=== PATIENT | male | born 1960 | race Caucasian/White ===

== ENCOUNTER 2023-07-28 00:19 | Day surgery (SDC) | payer MEDICARE, SELFPAY ==
[2023-07-04 14:42] VITALS: BMI 38.9
--- NOTE | 2023-07-13 14:05 | PC.NURSE ---
Patient denies any changes to medication list or health history since previous phone call. Patient made aware of new arrival date and time. Denies any questions at this time.
--- NOTE | 2023-07-26 10:41 | SUR.PREOP ---
Patient called regarding upcoming procedure. Reviewed preop instructions, appointment times, and procedure prep.
[2023-07-28 13:00] VITALS: BP 154/104; PULSE 92; RESP 20; TEMP 36.1; O2SAT 92
--- NOTE | 2023-07-28 13:13 | PM.HPGS ---
History of Present Illness History of Present Illness Consent: Risks, benefits, and alternatives have been discussed and questions answered. Patient agrees to proceed with procedure. Chief complaint: neoplasm screening,GERD, Dysphonia Narrative: Forrest Zaman is a 63 year old male with gerd on nexium, had colon polyps ~ 4 years ago Review of Systems Constitutional: Constitutional: Denies headache(s) and Denies weakness Eyes: Eyes: Denies blurry vision ENT: Reports Normal hearing present, Denies headache(s) and Denies neck pain Cardiovascular: Cardiovascular: Denies chest pain and Denies dyspnea Respiratory: Respiratory: Denies dyspnea Gastrointestinal: Gastrointestinal: Reports no additional gastrointestinal complaints Genitourinary: Genitourinary: Denies dysuria Musculoskeletal: Musculoskeletal: Denies neck pain Integumentary/Breasts: Skin/Breast: Denies dry skin Neurologic: Reports Normal hearing present, Denies headache(s) and Denies weakness Psychiatric: Psychiatric: Denies anxiety Endocrine: Endocrine: Denies change in body appearance Hematologic/Lymphatic: Hematologic/Lymphatic: Denies easy bleeding Allergic/Immunologic: Allergic/Immunologic: Denies urticaria PMF Past Medical History Medical History (Updated 07/28/23 @ 13:14 by Hans Lomax MD) Colon polyp GERD (gastroesophageal reflux disease) Social History Social History Smoking packs per day: 1 Smoking cigarettes per day: 20.0 Years smoked: 55 Smoking pack-years: 55.00 Smoking status: Current every day smoker Tobacco type: cigarettes Alcohol intake: current Alcohol use details: drinks 1/5 of Rum a week Substance use: current Substance use type: marijuana Living arrangements: with family Spiritual care concerns: No Meds Home Medications and Allergies Home Medications Medication Instructions Recorded Confirmed Type albuterol sulfate 90 mcg/actuation 1 puff inhalation PRN PRN sob 07/04/23 07/04/23 History aerosol inhaler amlodipine 5 mg tablet 5 mg PO DAILY 07/04/23 07/04/23 History atorvastatin 10 mg tablet 10 mg PO DAILY 07/04/23 07/04/23 History esomeprazole magnesium 40 mg 40 mg PO DAILY 07/04/23 07/04/23 History capsule,delayed release fluticasone fur. 200 mcg-umeclid 1 ea inhalation DAILY 07/04/23 07/04/23 History 62.5 mcg-vilant 25 mcg inhalat.powder (Trelegy Ellipta) gabapentin 300 mg capsule 300 mg PO TID 07/04/23 07/04/23 History meloxicam 15 mg tablet 15 mg PO DAILY 07/04/23 07/04/23 History tirzepatide 5 mg/0.5 mL 5 mg subcut WEEKLY 07/04/23 07/04/23 History subcutaneous pen injector (Kailash) Allergies Allergy/AdvReac Type Severity Reaction Status Date / Time No Known Allergies Allergy Verified 07/28/23 12:57 Vital Signs Vital Signs - 24 hr 07/28/23 13:00 Temperature 97 F L Pulse Rate 92 Respiratory Rate 20 Blood Pressure 154/104 H Pulse Oximetry 92 Oxygen Delivery Room Air Exam Const: General: comfortable and no acute distress HENMT: Face/Nose/Sinus: Normal nares present Eyes: General: appearance normal, both eyes and all related structures Neck: Neck: no JVD Resp: Auscultation: clear to auscultation bilaterally Cardio: Rate: regular rate Rhythm: regular rhythm GI: Inspection: non-distended GI Palp: Yes Soft to palpation Skin: General skin exam: normal color Neuro: General: gait normal Speech: normal speech Extrem: General: normal to inspection Psych: Mental Status: mental status grossly normal Assessment and Plan Assessment and plan (1) GERD (gastroesophageal reflux disease): Code(s): K21.9 - Gastro-esophageal reflux disease without esophagitis Status: Acute Assessment and Plan: egd with bx on ppi (2) Colon polyp: Code(s): K63.5 - Polyp of colon Status: Acute Assessment and Plan: colonoscopy
[2023-07-28] MEDS: LACTATED RINGERS 1,000 ML 150 ML IV CONT (13:14)
[2023-07-28 13:18] LABS: Glucose Point of Care 113 mg/dl (65-105)
--- NOTE | 2023-07-28 13:32 | WPDANESEPPF ---
Anes - Initial Pre Proc Eval Procedure: Operation Date: 07/28/23 14:00 Proposed Procedures p Esophagogastroduodenoscopy & Colonoscopy - Hans Lomax MD Date/Time: 07/28/23 13:32 Surgeon: Hans Lomax MD Pre Op Diagnosis: neoplasm screening,GERD, Dysphonia Patient Data Age: 63 Gender: M Height: 1.83 m Weight: 120.8 kg Last Vital Signs Temp 97 F L 07/28/23 13:00 Pulse 92 07/28/23 13:00 Resp 20 07/28/23 13:00 BP 154/104 H 07/28/23 13:00 Pulse Ox 92 07/28/23 13:00 O2 Del Method Room Air 07/28/23 13:00 Allergies Allergy/AdvReac Type Severity Reaction Status Date / Time No Known Allergies Allergy Verified 07/28/23 12:57 Home Medications Medication Instructions Recorded Confirmed Type albuterol sulfate 90 mcg/actuation 1 puff inhalation PRN PRN sob 07/04/23 07/04/23 History aerosol inhaler amlodipine 5 mg tablet 5 mg PO DAILY 07/04/23 07/04/23 History atorvastatin 10 mg tablet 10 mg PO DAILY 07/04/23 07/04/23 History fluticasone fur. 200 mcg-umeclid 1 ea inhalation DAILY 07/04/23 07/04/23 History 62.5 mcg-vilant 25 mcg inhalat.powder (Trelegy Ellipta) gabapentin 300 mg capsule 300 mg PO TID 07/04/23 07/04/23 History meloxicam 15 mg tablet 15 mg PO DAILY 07/04/23 07/04/23 History tirzepatide 5 mg/0.5 mL 5 mg subcut WEEKLY 07/04/23 07/04/23 History subcutaneous pen injector (Davidunbelaro) esomeprazole magnesium 40 mg 40 mg PO BID #60 caps 07/28/23 Rx capsule,delayed release Laboratory Tests 07/28/23 13:16 POC Capillary Glucose 113 H mg/dl (65-105) Patient hx anesthesia problems: none Family hx anesthesia problems: none Results Review: All pre-operative results and documents have been reviewed as part of the pre-operative evaluation. [facility] Past Medical History Medical History (Updated 07/28/23 @ 13:32 by Hans Lomax MD) Colon polyp Diabetes GERD (gastroesophageal reflux disease) Social History Social History Smoking packs per day: 1 Smoking cigarettes per day: 20.0 Years smoked: 55 Smoking pack-years: 55.00 Smoking status: Current every day smoker Tobacco type: cigarettes Alcohol intake: current Alcohol use details: drinks 1/5 of Rum a week Substance use: current Substance use type: marijuana Living arrangements: with family Spiritual care concerns: No Anes - Eval Final PreProcedure Day of Procedure 07/28/23 13:32 Patient weight: obese Heart: regular rate and rhythm Lungs: clear to auscultation Airway: Mallampati scale class II Neurological: alert and oriented Last oral intake: >/= 8 hours ASA classification: III Emergent: no Anesthetic plan: proceed Anesthesia type and monitoring: general GIVS and standard monitoring Results Review: All pre-operative results and documents have been reviewed as part of the pre-operative evaluation. Informed Consent: The patient's anesthetic plan and its attendant risks and benefits were discussed with the patient/family/POA. Questions were solicited and answers provided to the satisfaction of the patient/family/POA.
--- NOTE | 2023-07-28 13:33 | SUR.OPER ---
egd ended at 1328 and colon begun at 1333.
[2023-07-28 13:48] VITALS: BP 106/74; PULSE 79; RESP 20; O2SAT 97
[2023-07-28 13:58] VITALS: BP 115/77; PULSE 76; RESP 20; O2SAT 95
[2023-07-28 14:08] VITALS: BP 114/80; PULSE 72; RESP 20; O2SAT 96
== END 2023-07-28 14:14 | disposition home or self-care (01) ==
PROVIDERS: PCP Internal Medicine; Visit Provider Internal Medicine Gastroenterology
PROC: 0DJ08ZZ Inspection of Upper Intestinal Tract, Via Natural or Artificial Opening Endoscopic (ICD-10-PCS; CPT 43235; principal; 2023-07-28 14:00)
DX: Z12.11 Encounter for screening for malignant neoplasm of colon (principal); K21.00 Gastro-esophageal reflux disease with esophagitis, without bleeding; K29.50 Unspecified chronic gastritis without bleeding; K44.9 Diaphragmatic hernia without obstruction or gangrene; D12.0 Benign neoplasm of cecum; D12.2 Benign neoplasm of ascending colon; D12.5 Benign neoplasm of sigmoid colon; K57.30 Diverticulosis of large intestine without perforation or abscess without bleeding; Z86.010 Personal history of colon polyps; F17.210 Nicotine dependence, cigarettes, uncomplicated; Z79.51 Long term (current) use of inhaled steroids; Z79.85 Long-term (current) use of injectable non-insulin antidiabetic drugs; E11.9 Type 2 diabetes mellitus without complications; E66.9 Obesity, unspecified; Z68.36 Body mass index [BMI] 36.0-36.9, adult
CPT/HCPCS: 43239; 45385; 82948; 88305; J2704; J7120

== ENCOUNTER 2023-08-18 07:23 | Outpatient (CLI) | payer MEDICARE, SELFPAY ==
--- NOTE | ~2023-08-18 | NM_ITS ---
EXAM: NM gastric emptying study DATE: 08/18/2023 12:15 TRAINING AND DEVELOPMENT SPECIALIST INDICATION: Gastroesophageal reflux TECHNIQUE: A gastric emptying study was performed using the methodology of Cora JOHNS, et al. J Nucl Med 2007; 48:568-572. The patient was given a meal consisting of 2 scrambled eggs labeled with 1 mCi Tc-99m sulfur colloid, 2 slices of toast, two packages of jam, and approximately 120 mL of water. Si multaneous anterior and posterior 1-min images of the abdomen were obtained with the patient supine a t multiple time points over a total period of 4 hours. The geometric mean of anterior and posterior v iews was determined, and the percentage retention was calculated for each time point. COMPARISON: None. FINDINGS: Gastric retention of the radiotracer-labeled meal was 91%, 91%, and 91% at the 1-hour, 2-h our, and 4-hour time points, respectively. With this technique, apparent rapid gastric emptying is yeboah ggested by <30% gastric retention at 1 hour. Delayed gastric emptying is defined by gastric retention of >90% at 1 hour, >60% retention at 2 hours, or >10% retention at 4 hours. IMPRESSION: 1. Markedly delayed gastric emptying. Reviewed, dictated and finalized at location B. [facility] AND DEVELOPMENT SPECIALIST
== END 2023-08-18 07:24 | disposition home or self-care (01) ==
LOC: ANHIMG 07:25
PROVIDERS: PCP Internal Medicine; Visit Provider Internal Medicine Gastroenterology
DX: K21.9 Gastro-esophageal reflux disease without esophagitis (principal); E11.9 Type 2 diabetes mellitus without complications; K30 Functional dyspepsia
CPT/HCPCS: 78264; A9541